=== PATIENT | female | born 1990 | race Caucasian/White ===

== ENCOUNTER 2022-03-19 12:00 | Outpatient (CLI) | payer BC ==
[~2022-03-19] VITALS: Ht 170.2 cm; Wt 99.5 kg
[2022-03-19] VITALS (8 sets, daily range): BP systolic 128–142; BP diastolic 75–81; PULSE 72–84
--- NOTE | 2022-03-19 14:30 | NUR ---
1430 PT AMBULATORY TO UNIT WITH SPOUSE. PT CHANGED INTO A GOWN AT THIS TIME AND LYING COMFORTABLY IN BED. THIS RN INSTRUCTED PT ON HOW TO PERFOM CLEAN CATCH UA. PT REPORTS GOOD MOVEMENT, SCANT VAGINAL BLEEDING AFTER SVE THIS MORNING AT OFFICE, NO LEAKING OF FLUID, AND NO CTX. PT INFORMED OF PLAN OF CARE. WILL CONTINUE TO MONITOR.
[2022-03-19 15:01] LABS: BASO % 0.3 % (0.0-2.0); EOS % 0.4 % (0.0-4.0); GRAN # 4.2 K/mm3 (1.4-6.5); GRAN % 61.7 % (42.2-75.2); HEMOGLOBIN 11.9 g/dl (12.5-16.0); LYMPH # 1.9 K/mm3 (1.2-3.4); LYMPH % 28.3 % (20.0-51.0); MEAN CELL VOLUME 89 fl (80.0-100.0); MEAN CORPUSCULAR HEMOGLOBIN 31 pg (27-31); MEAN CORPUSCULAR HGB CONC 34 g/dl (33.0-37.0); MEAN PLATELET VOLUME 11.7 fl (7.4-10.4); MONO # 0.6 K/mm3 (0.1-0.6); PLATELET COUNT 248 K/mm3 (130-400); RED BLOOD COUNT 3.89 M/mm3 (4.10-5.30); REDCELL DISTRIBUTION WIDTH-CV 12.7 % (11.5-14.5)
[2022-03-19] MEDS ORDERED: PRENATAL TABLET PO (15:02)
[2022-03-19 15:07] LABS: HEMATOCRIT 34.6 % (37.0-47.0)
[2022-03-19] MEDS ORDERED: COLACE 100100 MG/CAP PO (15:12)
[2022-03-19 15:19] LABS: COLLECTION METHOD CLEAN CATCH
[2022-03-19 15:20] LABS: URINE APPEARANCE Clear (CLEAR/HAZY); URINE BLOOD 3+ (NEGATIVE); URINE COLOR Yellow (YELLOW); URINE GLUCOSE Negative (NEGATIVE); URINE KETONE Negative (NEGATIVE); URINE NITRATE Negative (NEGATIVE); URINE PROTEIN(semi-quant) Negative (NEGATIVE); URINE UROBILINOGEN 0.2 E.U/dL (0.2-1.0)
[2022-03-19 15:24] LABS: ALBUMIN 2.8 gm/dL (3.5-5.0); BILIRUBIN,TOTAL 0.2 mg/dL (0.2-1.2); CALCIUM 8.9 mg/dL (8.4-10.2); CREATININE, serum 0.57 mg/dL (0.57-1.11)
[2022-03-19 15:25] LABS: MUCOUS Present (NOT PRESENT); URINE BACTERIA Rare /hpf (NONE SEEN); URINE WBC 0-2 /hpf (0-2)
[2022-04-04] MEDS ORDERED: IBU600 MG PO (09:09)
== END 2022-03-19 16:30 | disposition home or self-care (01) ==
LOC: LDRO 12:00 → COL.LAB 14:12 → LDRO 14:20
PROVIDERS: Obstetrics & Gynecology
DX: Z34.93 Encounter for supervision of normal pregnancy, unspecified, third trimester (principal); Z3A.38 38 weeks gestation of pregnancy